=== PATIENT | female | born 1995 | race Caucasian/White ===

== ENCOUNTER 2018-03-02 08:38 | Emergency (ER) | payer BC ==
[2018-03-02] MEDS ORDERED: PROCHLORPERAZINE INJ 5 MG/ML 2 ML VIAL IV ONE (09:13)
--- NOTE | 2018-03-02 09:29 | ED ---
Abdominal Pain/Female - HPI Summary HPI Summary: Patient presents with 4 days of nausea and vomiting. She reports this was accompanied by a fever on day 1. She continues to have body aches and feeling warm now. She tried some of her sister's Zofran ODT which was helpful at times and not at others. She has a headache but denies rhinorrhea, sore throat, ear pain or pressure, rash, neck pain or stiffness. She has had a mild cough, mostly before vomiting. Denies shortness of breath, chest pain, wheezing or difficulty breathing. Denies recent sick contacts. Also denies diarrhea or even a bowel movement over the past 4 days. Reports abdominal pain is in her lower abdomen and radiates around her to her lower back. Denies dysuria, flank pain, hematuria, urinary frequency, urinary urgency, abnormal vaginal discharge. H/o UTI years ago - not sure this feels the same? 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 She is menstruating currently. Reports she and partner have been trying to get over the past 4 years and she is currently taking an [id number] fertility supplement. Upon inquiry about further fertility testing, she states "they told me I'm okay but I need to start fertility medication". She has not started rx fertility meds yet. 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 Hx Last Menstrual Period: 08/15/14 Pain Intensity: 8 Allergies/Adverse Reactions: Allergies Allergy/AdvReac Type Severity Reaction Status Date / Time No Known Allergies Allergy Verified 07/18/15 14:59 PMH/Surg Hx/FS Hx/Imm Hx Previously Healthy: Yes Endocrine/Hematology History: Reports: Hx Anemia - h/o - not currently Denies: Hx Blood Disorders, Hx Diabetes, Hx Thyroid Disease, Autoimmune Disease Cardiovascular History: Denies: Hx Hypertension Respiratory History: Denies: Hx Asthma, Hx Chronic Obstructive Pulmonary Disease (COPD) GI History: Denies: Hx Cirrhosis, Hx Crohn's Disease, Hx Diverticulosis, Hx Gall Bladder Disease, Hx Gastroesophageal Reflux Disease, Hx Gastrointestinal Bleed, Hx Hiatal Hernia, Hx Irritable Bowel, Hx Obstructive Bowel, Hx Ulcer, Hx Urosepsis History: Reports: Other Problems/Disorders - UTI, fertility issues Musculoskeletal History: Denies: Hx Rheumatoid Arthritis, Hx Osteoporosis Infectious Disease History: No Infectious Disease History: Denies: Hx Clostridium Difficile, Hx Hepatitis, Hx Human Immunodeficiency Virus (HIV), Hx Shingles, Hx Tuberculosis, Hx Known/Suspected VRE, Hx Known/ Suspected VRSA, Traveled Outside the [place] in Last 30 Days Comment Only: Hx of Known/Suspected MRSA - Patient states she has never had - Family History Known Family History: Positive: None - Social History Lives: With Family Alcohol Use: None Hx Substance Use: No Substance Use Type: Reports: None Hx Tobacco Use: No Smoking Status (MU): Never Smoked Tobacco Review of Systems Positive: Fever, Fatigue. Negative: Chills Eyes: Negative ENT: Negative Cardiovascular: Negative Positive: Cough Positive: Abdominal Pain, Vomiting, Nausea. Negative: Diarrhea Positive: see HPI Musculoskeletal: Other - low back pain Skin: Negative Positive: Headache. Negative: Weakness, Paresthesia, Numbness, Syncope, Slurred Speech Psychological: Normal All Other Systems Reviewed And Are Negative: Yes Physical Exam Triage Information Reviewed: Yes Vital Signs On Initial Exam: Initial Vitals Temp Pulse Resp BP Pulse Ox 99.6 F 124 16 121/76 97 03/02/18 08:40 03/02/18 08:40 03/02/18 08:40 03/02/18 08:40 03/02/18 08:40 Vital Signs Reviewed: Yes Appearance: Positive: No Pain Distress - at rest - ab TTP (See below), Well- Nourished, Ill-Appearing - appears fatigued, lying stretcher Skin: Positive: Warm, Skin Color Reflects Adequate Perfusion, Dry Head/Face: Positive: Normal Head/Face Inspection Eyes: Positive: Normal, EOMI - no photophobia, CALLIE, Conjunctiva Clear - anicteric sclera ENT: Positive: Normal ENT inspection, Hearing grossly normal, Pharynx normal - mucosa dry, TMs normal, Uvula midline. Negative: Nasal congestion, Nasal drainage, Tonsillar swelling, Tonsillar exudate, Trismus, Muffled voice, Hoarse voice Neck: Positive: Supple, Nontender, No Lymphadenopathy Respiratory/Lung Sounds: Positive: Clear to Auscultation, Breath Sounds Present. Negative: Rales, Rhonchi, Wheezes Cardiovascular: Positive: Normal, Tachycardia, S1, S2. Negative: Murmur, Rub Abdomen Description: Positive: Soft, Other: - diffuse TTP across upper ab - no rebounding; lower quadrants are NTTP but suprapubic region is TTP, again, no rebounding. Negative: CVA Tenderness (R), CVA Tenderness (L), Distended, Guarding, Hernia @ Bowel Sounds: Positive: Present Pelvic Exam: Positive: External Exam Normal - (blood at introitus) - no CMT, No Cerv. Motion Tender, Active Bleeding. Negative: Lesions, Mass Musculoskeletal: Positive: Normal, Strength/ROM Intact Neurological: Positive: Normal, Sensory/Motor Intact, Alert, Oriented to Person Place, Time, CN Intact II-III Psychiatric: Positive: Normal - Laureen Coma Scale Best Eye Response: 4 - Spontaneous Best Motor Response: 6 - Obeys Commands Best Verbal Response: 5 - Oriented Coma Scale Total: 15 Diagnostics - Vital Signs Vital Signs Temp Pulse Resp BP Pulse Ox 03/02/18 08:40 99.6 F 124 16 121/76 97 - Laboratory Result Diagrams: 03/02/18 08:40 03/02/18 08:40 Lab Statement: Any lab studies that have been ordered have been reviewed, and results considered in the medical decision making process. Re-Evaluation - Re-Evaluation First Eval Change: Improved - nausea resolved, ab pain improving s/p fluids Second Eval Change: Improved - tolerating PO fluids well Abdominal Pain Fem Course/Dx - Course Course Of Treatment: Pt reports feeling much better s/p IVF and antiemetic - tolerating PO liquids well. U/A collected and reveals: + protein, ketones, blood, nitrates, urobili, WBCs, RBCs, squamos cells, bacteria. Labs: WBC WNL, CRP 200's, lactic WNL, CMP + dehydration, - hcg. Suspect UTI based on origin of sx and hx - rx'd anbx. - Diagnoses Provider Diagnoses: UTI (urinary tract infection) Discharge - Sign-Out/Discharge Documenting (check all that apply): Patient Departure - Discharge Plan Condition: Stable Disposition: HOME Prescriptions: Prochlorperazine TAB* [Compazine Tab*] 5 mg PO Q6H PRN #12 tab PRN Reason: Nausea Sulfamethox/Trimethoprim DS* [Bactrim DS 800/160 TAB*] 1 tab PO BID #14 tab Patient Education Materials: Dehydration (ED), Urinary Tract Infection in Women (ED), Acute Nausea and Vomiting (ED) Forms: *Work Release Referrals: [facility] [Outside] Additional Instructions: You appear to have a UTI. Complete antibiotics as directed. *If you develop flank pain, fever, chills, return of vomiting, return to ED We also collected vaginal cultures which will take 2 days to return. We will call you once those are available. If you develop more obvious urinary tract symptoms or vaginal symptoms in the meantime, call or return to ED for treatment. You may also have a GI bug - symptoms may be managed with anti-nausea medication , fluids and rest. See education for details. *If worse, return to ED You may also follow-up with PCP - [facility] G[facility] is a local PCP who can see you as needed if you do not have a PCP. Call today to follow-up in 2 days. - Billing Disposition and Condition Condition: STABLE Disposition: Home
[2018-03-02] MEDS: NS 0.9% 1000 ML* 2,000 ML IV ONE (09:42)
[2018-03-02 09:57] LABS: ABS Basophils 0 10^3/ul (0-0.2); ABS Eosinophils 0 10^3/ul (0-0.6); ABS Lymphocytes 0.2 10^3/ul (1.0-4.8); ABS Monocytes 1.1 10^3/ul (0-0.8); ABS Neutrophils 8.5 10^3/ul (1.5-7.7); ABS Nucleated RBC 0 10^3/ul; Activated Partial Thrombo Time 26.8 seconds (26.0-36.3); Eosinophil % 0 %; Hematocrit 34 % (35-47); Hemoglobin 11.8 g/dl (12.0-16.0); INR 1.43 (0.77-1.02); Lymphocyte % 2.4 %; Mean Corpuscular HGB Conc 35 g/dl (31-36); Mean Corpuscular Hemoglobin 31 pg (27-31); Mean Corpuscular Volume 89 fL (80-97); Nucleated Red Blood Cells % 0; Platelet Count 178 10^3/ul (150-450); Red Blood Count 3.83 10^6/ul (4.00-5.40); Red Cell Distribution Width 13 % (10.5-15); White Blood Count 9.9 10^3/ul (3.5-10.8)
[2018-03-02 10:06] LABS: ALT 13 U/L (7-52); AST 17 U/L (13-39); Albumin 3.7 g/dL (3.2-5.2); Alkaline Phosphatase 61 U/L (34-104); Amylase 20 U/L (29-103); Anion Gap 9 mmol/L (2-11); BUN/Creatinine Ratio 16.9 (8-20); Blood Urea Nitrogen 13 mg/dL (6-24); C Reactive Protein 297.01 mg/L (<8.01); CO2 Carbon Dioxide 26 mmol/L (22-32); Calcium 9.4 mg/dL (8.6-10.3); Chloride 99 mmol/L (101-111); EGFR African American 111.4 (>60); EGFR Non-African American 92.1 (>60); Globulin 3.8 g/dL (2-4); Glucose 146 mg/dL (70-100); Magnesium 1.9 mg/dL (1.9-2.7); Potassium 3.5 mmol/L (3.5-5.0); Sodium 134 mmol/L (135-145); Total Protein 7.5 g/dL (6.4-8.9)
[2018-03-02 10:11] LABS: HCG Pregnancy < 0.60 mIU/mL
[2018-03-02 10:50] LABS: TSH (Thyroid Stimulating Horm) 0.55 mcIU/mL (0.34-5.60)
[2018-03-02 11:47] LABS: Influenza A Molecular NEGATIVE (Negative); Influenza B Molecular NEGATIVE (Negative)
[2018-03-02 13:27] LABS: Urine Appearance Cloudy; Urine Bacteria 3+ (Absent); Urine Bilirubin Negative (Negative); Urine Blood 3+ (Negative); Urine Color Amber; Urine Glucose Negative (Negative); Urine Ketones 1+ (Negative); Urine Nitrite Positive (Negative); Urine Protein 2+(100 mg/dL) (Negative); Urine Red Blood Cell 3+(>10/hpf) (Absent); Urine Specific Gravity 1.021 (1.010-1.030); Urine Squamous Epithelial Cell Present (Absent); Urine Urobilinogen Positive (Negative); Urine White Blood Cell 3+(>20/hpf) (Absent)
[2018-03-02 13:55] VITALS: BP 127/87
[2018-03-03 13:53] LABS: Trichomonas vaginalis Result Negative (Negative)
[2018-03-03 13:58] LABS: Neisseria gonorrhoeae (GC) RNA Negative (Negative)
--- NOTE | 2018-03-04 05:53 | ED ---
Progress - Progress Note Progress Note: Patient's preliminary urine culture reveals greater than 100,000 Escherichia coli. She was started on Bactrim. Final results pending. Re-Evaluation - Re-Evaluation First Eval Change: Improved - nausea resolved, ab pain improving s/p fluids Second Eval Change: Improved - tolerating PO fluids well Course/Dx - Course Course Of Treatment: Pt's step-daughter recently had GI bug - most likely cause of symptoms. Resolved w/ anti-emetics and IVF - pt reports feeling much better, tolerating PO liquids well. U/A collected but pt wants to leave prior to results. She has h/o UTI and d/t suprapubic pain at onset, will check. Will also call her if results are positive for infection and e-rx anbx as needed. Pt agrees w/ plan. - Diagnoses Provider Diagnoses: Nausea and vomiting, UTI (urinary tract infection) Discharge - Sign-Out/Discharge Documenting (check all that apply): Post-Discharge Follow Up - Discharge Plan Condition: Stable Disposition: HOME Prescriptions: Prochlorperazine TAB* [Compazine Tab*] 5 mg PO Q6H PRN #12 tab PRN Reason: Nausea Sulfamethox/Trimethoprim DS* [Bactrim DS 800/160 TAB*] 1 tab PO BID #14 tab Patient Education Materials: Dehydration (ED), Urinary Tract Infection in Women (ED), Acute Nausea and Vomiting (ED) Forms: *Work Release Referrals: [facility] [Outside] Additional Instructions: You appear to have a UTI. Complete antibiotics as directed. *If you develop flank pain, fever, chills, return of vomiting, return to ED We also collected vaginal cultures which will take 2 days to return. We will call you once those are available. If you develop more obvious urinary tract symptoms or vaginal symptoms in the meantime, call or return to ED for treatment. You may also have a GI bug - symptoms may be managed with anti-nausea medication , fluids and rest. See education for details. *If worse, return to ED You may also follow-up with PCP - [facility] a local PCP who can see you as needed if you do not have a PCP. Call today to follow-up in 2 days. - Billing Disposition and Condition Condition: STABLE Disposition: Home
== END 2018-03-02 13:54 | disposition home or self-care (01) ==
LOC: ED 08:38
DX: N39.0 Urinary tract infection, site not specified (principal); B96.20 Unspecified Escherichia coli [E. coli] as the cause of diseases classified elsewhere; R11.2 Nausea with vomiting, unspecified; R53.83 Other fatigue; R51 Headache; Z32.02 Encounter for pregnancy test, result negative; Z87.440 Personal history of urinary (tract) infections
CPT/HCPCS: 36415; 80053; 81003; 81015; 82150; 83605; 83690; 83735; 84443; 84702; 85025; 85610; 85730; 86140; 86850; 86900; 86901; 87077; 87086; 87186; 87480; 87491; 87510; 87591; 87661; 96360; 96372; 96374; 99282; 99283; J0780

== ENCOUNTER 2020-08-16 11:49 | Inpatient (IN) ==
[2020-08-16] MEDS ORDERED: Lactated Ringers 1000 ml BAG 1,000 ML IV ONE ×2 (13:05→16:01)
[2020-08-16] MEDS ORDERED: Buffered Lidocaine 1% SYRIN 1 ml INTRADERM ONE (13:05)
[2020-08-16] MEDS ORDERED: Lactated Ringers 1000 ml BAG 1,000 ML IV SCH ×2 (14:00→17:00)
[2020-08-16 14:26] LABS: Urine Benzodiazepine Screen None Detected (None Detect); Urine Cannabinoids Screen None Detected (None Detect); Urine Opiates Screen None Detected (None Detect)
[2020-08-16] MEDS ORDERED: OBEPIDURAL 250 ML EPIDURAL ONE (15:35)
[2020-08-16 15:37] LABS: ABS Lymphocytes 0.8 10^3/ul (1.0-4.8); ABS Neutrophils 9.9 10^3/ul (1.5-7.7); Eosinophil % 0.3 %; Hematocrit 32 % (35-47); Hemoglobin 10.9 g/dL (12.0-16.0); Lymphocyte % 6.5 %; Mean Corpuscular HGB Conc 34 g/dL (31-36); Mean Corpuscular Hemoglobin 28 pg (27-31); Mean Corpuscular Volume 83 fL (80-97); Mean Platelet Volume 10.1 fL (7.4-10.4); Platelet Count 295 10^3/uL (150-450); Red Blood Count 3.87 10^6 /uL (3.70-4.87); Red Cell Distribution Width 15 % (10-15); White Blood Count 11.8 10^3/uL (3.5-10.8)
[2020-08-16] MEDS ORDERED: Sodium Citrate/Citric Acid LIQ 15 ML UDC PO PRN (16:01)
[2020-08-16] MEDS ORDERED: OBEPIDURAL 250 ML EPIDURAL SCH (17:00)
[2020-08-16 17:29] LABS: Urine Appearance Turbid; Urine Bilirubin Negative (Negative); Urine Blood 2+ (Negative); Urine Color Yellow; Urine Glucose Negative (Negative); Urine Ketones Negative (Negative); Urine Nitrite Negative (Negative); Urine Protein Negative (Negative); Urine Specific Gravity 1.016 (1.002-1.030); Urine Urobilinogen Negative (Negative)
[2020-08-16 17:58] LABS: Urine Bacteria Absent (Absent); Urine Red Blood Cell Trace(0-2/hpf) (Absent); Urine Squamous Epithelial Cell Present (Absent); Urine White Blood Cell Trace(0-5/hpf) (Absent)
[2020-08-16] MEDS ORDERED: ceFOXitin 2 GM IVPREMIX 2 GM/50 ML BAG ONE (23:27)
[2020-08-16] MEDS ORDERED: Lidocaine 2% w/ EPI 1:200,000 MPF 20 ML SDV VIAL ONE (23:47)
[2020-08-16] MEDS ORDERED: fentaNYL 100 mcg/2 ml 50 MCG/ML VIAL ONE (23:50)
[2020-08-17] MEDS ORDERED: Oxytocin 10 UNITS/ML 1 ML VIAL ONE (00:27)
[2020-08-17] MEDS ORDERED: Morphine PF AMP (0.5MG/ML) 5 MG/10 ML AMP ONE (00:28)
[2020-08-17] MEDS ORDERED: Naloxone 0.4 mg VIAL 0.4 mg/ml 1 ml VIAL IV PRN ×2 (00:51→00:53)
[2020-08-17] MEDS ORDERED: Ondansetron 4 mg VIAL 2 MG/ML 2 ml VIAL IV PRN (00:53)
[2020-08-17] MEDS ORDERED: Naloxone 4 mg VIAL (10 ml) 2 MG in NS 0.9% 250 ml 250 ML IV PRN (00:53)
[2020-08-17] MEDS ORDERED: Metoclopramide 5 MG/ML VIAL (10 mg) IV PRN (00:53)
[2020-08-17] MEDS ORDERED: DiMENhydriNATE IV 50 mg/ml 1 ml VIAL IV PUSH PRN (00:53)
[2020-08-17] MEDS ORDERED: Witch Hazel PAD JAR TOPICAL PRN (01:23)
[2020-08-17] MEDS ORDERED: Glycerin ADULT 2.4 gm SUPP PR PRN (01:23)
[2020-08-17] MEDS ORDERED: Dibucaine 1% OINT 28.35 GM TUBE PR PRN (01:23)
[2020-08-17] MEDS ORDERED: Lactated Ringers 1000 ml BAG 1,000 ML IV SCH (02:00)
[2020-08-17] MEDS: Acetaminophen IV 1 GM/100ML 100 ML IV PRN ×2 (06:31→13:13)
[2020-08-17] MEDS ORDERED: fentaNYL 100 mcg/2 ml 50 MCG/ML VIAL ONE (09:26)
[2020-08-18 09:22] LABS: ABS Eosinophils 0.1 10^3/ul (0-0.6); ABS Lymphocytes 1.1 10^3/ul (1.0-4.8); ABS Monocytes 1.4 10^3/ul (0-0.8); ABS Neutrophils 12.4 10^3/ul (1.5-7.7); Eosinophil % 0.9 %; Hematocrit 29 % (35-47); Hemoglobin 9.6 g/dL (12.0-16.0); Lymphocyte % 7.1 %; Mean Corpuscular HGB Conc 33 g/dL (31-36); Mean Corpuscular Hemoglobin 28 pg (27-31); Mean Corpuscular Volume 85 fL (80-97); Mean Platelet Volume 9.1 fL (7.4-10.4); Nucleated Red Blood Cells % 0.1; Platelet Count 294 10^3/uL (150-450); Red Blood Count 3.41 10^6 /uL (3.70-4.87); Red Cell Distribution Width 16 % (10-15)
[2020-08-19 08:02] VITALS: BP 126/71
== END 2020-08-19 14:56 | disposition home or self-care (01) | DRG 540 ==
LOC: MCHOBOUT 11:49 → MCHOB 12:36
PROVIDERS: ADMIT Obstetrics & Gynecology; ATTEND Obstetrics & Gynecology